=== PATIENT | male | born 1940 | race Caucasian/White ===

== ENCOUNTER 2018-07-09 11:26 | Inpatient (IN) ==
[2018-07-09] MEDS ORDERED: Vancomycin Inj 1,250 MG in Sodium Chlor 0.9% Inj 250 ML IV.SIG STA (11:28)
[2018-07-09] MEDS ORDERED: Sod Chloride 0.9% Inj 1,000 ML IV.SIG SCH ×2 (11:30→14:15)
[2018-07-09] MEDS ORDERED: Sod Chloride 0.9% Inj 100 ML IV.SIG SCH (11:30)
--- NOTE | 2018-07-09 12:18 | XR ---
EXAM DATE: 07/09/2018 11:28 AM EDT AGE/SEX: 78 years / Male INDICATIONS: Fever. CLINICAL DATA: This is the patient's initial encounter. Patient reports that signs and symptoms have been present for 1 day and indicates a pain score of Nonresponsive. MEDICAL/SURGICAL HISTORY: Non-responsive. Non-responsive. COMPARISON: No prior exams available for comparison. FINDINGS: A single AP view of the chest demonstrates diffuse opacification left lung. Right basilar airspace di sease.. The cardiomediastinal contours are unremarkable. Osseous structures are intact. CONCLUSION: 1. Almost complete opacification left lung. This may be a combination of atelectasis/infiltrate and effusion. Consider CT chest given the absence of prior imaging. 2. Right basilar airspace disease. Electronically signed by: Javan Abernathy MD 07/09/2018 12:16 PM EDT
[2018-07-09 12:19] LABS: Baso % (Auto) 0.1 % (0.0-2.0); Hematocrit 51.4 % (39.0-51.0); Lymph # (Auto) 0.9 th/mm3 (1.0-4.8); Lymph % (Auto) 3.7 % (9.0-44.0); Mean Corpuscular HGB Conc 33.1 % (32.0-36.0); Mean Corpuscular Hemoglobin 32.3 pg (27.0-34.0); Mean Corpuscular Volume 97.7 fL (80.0-100.0); Mean Platelet Volume 6.5 fL (7.0-11.0); Mono # (Auto) 1.7 th/mm3 (0.0-0.9); Mono % (Auto) 6.8 % (0.0-8.0); Neut # (Auto) 22.3 th/mm3 (1.8-7.7); Neut % (Auto) 89.4 % (16.0-70.0); Platelet Count 374 th/mm3 (150-450); Red Blood Count 5.26 mil/mm3 (4.50-5.90); White Blood Count 24.9 th/mm3 (4.0-11.0)
[2018-07-09 12:39] LABS: Alanine Aminotransferase 14 U/L (12-78); Alkaline Phosphatase 174 U/L (45-117); Total Protein 7.9 g/dL (6.4-8.2)
[2018-07-09 12:40] LABS: Albumin 3.2 g/dL (3.4-5.0); Anion Gap 8 meq/L (5-15); Aspartate Aminotransferase 56 U/L (15-37); Blood Urea Nitrogen 26 mg/dL (7-18); Calcium 9.2 mg/dL (8.5-10.1); Carbon Dioxide 33.3 meq/L (21.0-32.0); Chloride 101 meq/L (98-107); Glomerular Filtration Rate 77 mL/min (>89); Glucose,Random 194 mg/dL (74-106); Sodium 142 meq/L (136-145)
[2018-07-09 12:42] LABS: Potassium 5.5 meq/L (3.5-5.1)
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
--- NOTE | 2018-07-09 15:03 | CT ---
EXAM DATE: 07/09/2018 2:32 PM EDT AGE/SEX: 78 years / Male INDICATIONS: Shortness of breath. CLINICAL DATA: This is the patient's initial encounter. Patient reports that signs and symptoms have been present for 1 day and indicates a pain score of Nonresponsive. MEDICAL/SURGICAL HISTORY: Chronic obstructive pulmonary disease. Hypertension. Gastroesophageal r eflux disease. Diabetes. None. RADIATION DOSE: 16.08 CTDI (mGy) COMPARISON: [facility], CHEST 1V SINGLE AP, 07/09/2018. . TECHNIQUE: Multiple contiguous axial images were obtained through the chest without contrast. Image s were obtained in suspended respiration using multiple row detector helical technique. Using automa vandana exposure control and adjustment of the mA and/or kV according to patient size, radiation dose was kept as low as reasonably achievable to obtain optimal diagnostic quality images. DICOM format imag e data is available electronically for review and comparison. FINDINGS: Lung: Prominent paraseptal and diffuse centrilobular emphysema. Near-complete collapse of the left l mulu with abrupt termination of the left mainstem bronchus. There are several large bulla in the left apex. Dense airspace consolidation in the right lung base. Patchy groundglass opacities in the right upper lobe. Pleura: Large left-sided slightly loculated pleural effusion which demonstrates near simple fluid de nsity. Mediastinum: Heart is unremarkable without significant pericardial effusion. Moderate coronary arter y calcifications. Multiple slightly prominent mediastinal nodes with additional calcified nodes in th e left hilum. Osseous Structures: Status post cement augmentation at T12 and L1. No focal lytic or blastic bony les ions. Soft Tissues: Soft tissues are unremarkable. No significant axillary adenopathy. Other: Visulaized upper abdomen is essentially unremarkable. CONCLUSION: 1. Prominent paraseptal and diffuse centrilobular emphysema with near complete collapse of the left lung and abrupt termination of the left mainstem bronchus concerning for endobronchial mass/lesion. 2. Large associated left-sided slightly loculated pleural effusion with near simple fluid density. 3. Dense airspace consolidation with air bronchograms at the right lung base which may reflect pneum onia or aspiration. There are also additional regions of groundglass opacities in the right upper lob e which may also reflect developing airspace disease or volume loss. 4. Moderate coronary artery calcifications. Electronically signed by: Dallas Lindo MD 07/09/2018 3:02 PM EDT
[2018-07-09 15:17] LABS: Bacteria,Urine Occasional /hpf; Bilirubin,Urine Negative (Negative); Clarity,Urine Hazy (Clear); Color,Urine Amber (Yellw/Straw); Glucose,Urine (UA) Negative (Negative); Hyaline Casts,Urine 15 /lpf (0-3); Ictotest,Urine Negative (Negative); Leukocyte Esterase,Urine Negative (Negative); Mucus,Urine Few /lpf (Occasional); Nitrite,Urine Negative (Negative); Specific Gravity,Urine 1.031 (1.002-1.035); Squamous Epithelial Cell,Urine <1 /hpf (0-5); Urobilinogen,Urine 4 or Greater mg/dL (Less than 2)
[2018-07-09 15:29] LABS: INR 1.1 Ratio; Prothrombin Time 10.8 sec (9.8-11.6)
[2018-07-09] MEDS ORDERED: Vancomycin Consult Pharmacy OTHER PRN (16:05)
[2018-07-09] MEDS ORDERED: Dextrose 50% in Water 50 ML Vial IV.PUSH PRN (16:09)
--- NOTE | 2018-07-09 16:09 | P.CONCC ---
History of Present Illness Service: Critical care Consult date: 07/09/18 Requesting Physician: Jesus Robert Reason for Consult: Acute on chronic hypoxic respiratory failure, end-stage COPD Primary Care Provider: Robinson Barreto Chief Complaint: Altered mental status History of Present Illness: 78yM brought in from SNF for unresponsiveness. The patient is a resident of [facility] on the [facility] and was [place] to an [place] SNF in preparation for [place]. The patient's states that he has a history of Parkinson's and severe chronic COPD; for the past 3 years, he has required bipap ventilation around the clock and only takes it off to eat/ drink and shower. His says that she thinks the change in location for the past several days made the patient agitated and she is not sure if he was wearing his bipap mask as he normally does. He was brought in by EMS today when he began unresponsive. As per his MAR/ orders from [place], the patient is a DNR/ DNI. His confirms this, and says "he doesn't want any invasive or painful procedures". She says that he has had "little to no quality of life for the past few years" and she doesn't want him to be in pain. She is on her way to [place] and does not want any aggressive interventions; she would like to transition the patient to hospice when she arrives. Review of Systems unobtainable due to mental status PMFSH - History History Provided By: Significant Other, Medical Record - Medical History Medical History: Medical History (Last Reviewed 07/09/18 @ 15:57 by Shruthi Pittman DO) BPH (benign prostatic hyperplasia) COPD (chronic obstructive pulmonary disease) Dementia Diabetes CARMEN (generalized anxiety disorder) GERD (gastroesophageal reflux disease) HTN (hypertension) High cholesterol Hypothyroid MDD (major depressive disorder) Parkinson disease Sleep apnea - Social History I have reviewed the patient's Social History: Yes - Tobacco History Smoking Status: Unknown if ever smoked - Alcohol History How Often Do You Have a Drink Containing Alcohol: Unable to Obtain - Substance Use History Substance History: Unable to Obtain - Travel History Recent Travel in the [facility] Within the Last 8 Weeks: No Recent Travel Out of the Country Within the Last 8 Weeks: No - Immunization History Tetanus Immunization: Unable to Assess Medications and Allergies Active Medications: Active Medications Sodium Chloride (Ns Inj) 1,000 mls @ 0 mls/hr IV.SIG .Q0M KRISTEL Last Infusion: 07/09/18 13:47 Dose: Infused Sodium Chloride (Ns Inj) 100 mls @ 0 mls/hr IV.SIG .Q0M KRISTEL Last Infusion: 07/09/18 12:41 Dose: Infused Sodium Chloride (Ns Inj) 1,000 mls @ 0 mls/hr IV.SIG BOLUS KRISTEL Stop: 07/10/18 14:16 Last Infusion: 07/09/18 15:35 Dose: Infused Allergies Allergy/AdvReac Type Severity Reaction Status Date / Time No Known Allergies Allergy Unverified 07/09/18 11:28 Home Medications Medication Instructions Recorded Confirmed Type aspirin 81 mg PO DAILY 07/09/18 07/09/18 History budesonide 2 ml INHALATION BID 07/09/18 07/09/18 History calcitonin (salmon) 1 spray INTRANASAL (ALT) DAILY 07/09/18 07/09/18 History calcium carbonate-vitamin D3 1 tab PO DAILY 07/09/18 07/09/18 History [Calcium 600 + D(3)] carbidopa-levodopa 1 tab PO TID 07/09/18 07/09/18 History cholecalciferol (vitamin D3) 5,000 unit PO DAILY 07/09/18 07/09/18 History [Vitamin D3] citalopram 20 mg PO DAILY 07/09/18 07/09/18 History digoxin 0.125 mg PO DAILY 07/09/18 07/09/18 History diltiazem HCl 300 mg PO DAILY 07/09/18 07/09/18 History gabapentin 300 mg PO TID 07/09/18 07/09/18 History glipizide 20 mg PO DAILY 07/09/18 07/09/18 History hydrocodone-acetaminophen [Satsuma] 1 tab PO Q4-6H PRN 07/09/18 07/09/18 History levothyroxine 100 mcg PO DAILY 07/09/18 07/09/18 History metformin 500 mg PO BID 07/09/18 07/09/18 History omeprazole 20 mg PO DAILY 07/09/18 07/09/18 History polyethylene glycol 3350 [Miralax] 17 g PO DAILY 07/09/18 07/09/18 History pravastatin 40 mg PO DAILY 07/09/18 07/09/18 History primidone [Mysoline] 125 mg PO TID 07/09/18 07/09/18 History propranolol [Inderal XL] 80 mg PO BID 07/09/18 07/09/18 History tamsulosin 0.4 mg PO DAILY 07/09/18 07/09/18 History Physical Exam Vital signs: Vital Signs 07/09/18 11:33 07/09/18 12:16 07/09/18 14:00 Temperature 100.1 F H Pulse Rate 119 H 114 H Respiratory Rate 18 19 Blood Pressure 122/74 113/64 Pulse Oximetry 90 L 94 L Intake & Output 07/08/18 07/09/18 07/09/18 18:59 06:59 18:59 Intake Total 2462.5 / 2462.5 Balance 2462.5 / 2462.5 Weight 81.647 kg Intake: IV 2462.5 / 2462.5 Maxipime Inj 2,000 MG In NS Inj 100 / 100 100 ML @ 200 mls/hr IV.SIG STAT STA Rx#:[id number] NS Inj 1,000 ML @ Wide Open IV. 2100 / 2100 SIG BOLUS KRISTEL Rx#:[id number] Vancomycin Inj 1,250 MG In NS 262.5 / 262.5 Inj 250 ML @ 250 mls/hr IV.SIG STAT STA Rx#:[id number] Narrative: GEN: Frail, cachectic elderly male lying in bed, somnolent HEENT: NCAT, mucosa dry NECK: Trachea midline CARDIO: Tachy, regular RESP: Significantly diminished breath sounds bilaterally, absent at left base, increased work of breathing ABD/GI: Non-distended, no guarding EXT/MSK: Trace peripheral edema SKIN: Cool and dry NEURO: GCS 8 ([id number]), somnolent PSYCH: Unable to assess Assessment and Plan - Assessment and Plan Plan: 78yM presenting with encephalopathy secondary to acute on chronic hypoxic respiratory failure, end-stage COPD, left lung collapse and suspected left mainstem endobronchial mass, large left-sided pleural effusion, and bilateral lung consolidations. Plan: I had a long conversation with the patient's , who is on her way from the [facility] and says that she will be at [place] around 5 PM tonight. She confirms that the patient is a DNR/ DNI and says that she does not wish for him to have any invasive, aggressive, or painful procedures performed, including thoracentesis/ chest tube/ bronchoscopy. She would like to transition the patient to hospice when she arrives and is hopeful that the patient can be transferred to a hospice facility closer to their home as soon as possible. I informed her that this likely will not be accomplished this evening, which she understands and agrees with. The hospice team was consulted by Dr. Robert in the ED. I also spoke with Dr. Horton of interventional radiology both before and after my discussion with the patient's . The patient is certainly critically ill, but given his DNR/ DNI status and plan to transition to hospice when his arrives, I do not feel that it is appropriate or in keeping with his wishes to admit him to the intensive care unit. I discussed the case with Dr. Philippe of [facility], who has seen the patient and will place orders. I have ordered CPAP for the patient while he waits for his to arrive. Counseling/ Coordination of Care: Total critical care time spent is 31 minutes. This includes examining the patient, gathering history from someone other than the patient (i.e. chart review), discussing the patient's care with other providers, managing the patient's non-invasive ventilation settings, reviewing radiologic studies, reviewing laboratory values, and documentation. Amount of time is separate from teaching, counseling the patient and/or family, and exclusive of procedures. Code Status: DNR/ DNI, transition to comfort measures only when arrives Discussed Condition With: Patient's , Dr. Horton (IR), Dr. Philippe ([facility]), Dr. Robert (ED)
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
[2018-07-09] MEDS: Sod Chloride 0.9% Inj 1,000 ML IV.CONT SCH (19:22)
[2018-07-09] MEDS: Insulin NovoLOG Aspart Correctional Sugar Inj SQ SCH ×2 (19:25→22:33)
[2018-07-09] MEDS ORDERED: Morphine Sulfate Inj 2 MG/ML Vial IV.PUSH PRN (21:23)
[2018-07-10 05:31] LABS: Calcium 8.4 mg/dL (8.5-10.1); Carbon Dioxide 25.4 meq/L (21.0-32.0); Potassium 5.3 meq/L (3.5-5.1)
[2018-07-10 05:41] LABS: Baso % (Auto) 0.1 % (0.0-2.0); Hemoglobin 16.8 gm/dL (13.0-17.0); Lymph # (Auto) 0.9 th/mm3 (1.0-4.8); Mean Corpuscular HGB Conc 34.3 % (32.0-36.0); Mean Corpuscular Hemoglobin 33.2 pg (27.0-34.0); Mean Corpuscular Volume 96.9 fL (80.0-100.0); Mean Platelet Volume 7.2 fL (7.0-11.0); Mono # (Auto) 1.3 th/mm3 (0.0-0.9); Mono % (Auto) 5.5 % (0.0-8.0); Neut # (Auto) 20.7 th/mm3 (1.8-7.7); Neut % (Auto) 90.4 % (16.0-70.0); Platelet Count 320 th/mm3 (150-450); Red Blood Count 5.06 mil/mm3 (4.50-5.90); Red Cell Distribution Width 14.4 % (11.6-17.2); White Blood Count 22.9 th/mm3 (4.0-11.0)
[2018-07-10] MEDS: Sod Chloride 0.9% Inj 1,000 ML IV.CONT SCH ×2 (05:48→17:16)
[2018-07-10] MEDS: Insulin NovoLOG Aspart Correctional Sugar Inj SQ SCH ×2 (07:48→11:15)
[2018-07-10] MEDS ORDERED: Vancomycin Inj 1,750 MG in Sodium Chlor 0.9% Inj 500 ML IV.SIG SCH (08:00)
[2018-07-10 15:48] VITALS: O2SAT 89
--- NOTE | 2018-07-10 15:55 | P.PN ---
Subjective Interval history: Nursing denies any deterioration since last night. Patient on BiPAP at this time. Family at the bedside currently speaking with the hospice front desk representative. Physical Exam Vital signs: Vital Signs 07/09/18 16:00 07/09/18 17:37 07/09/18 20:00 Temperature 98.2 F Pulse Rate 112 H Respiratory Rate 22 14 16 Blood Pressure 125/73 61/44 L Pulse Oximetry 92 L 07/10/18 00:00 07/10/18 08:00 07/10/18 15:43 Temperature 97.2 F L 97.8 F Pulse Rate 121 H 84 Respiratory Rate 16 16 Blood Pressure 69/48 L 71/50 L Pulse Oximetry 89 L Intake & Output 07/09/18 07/10/18 07/10/18 18:59 06:59 18:59 Intake Total 2462.5 / 2462.5 100 / 100 1617.5 / 1617.5 Output Total 200 / 200 Balance 2462.5 / 2462.5 -100 / -100 1617.5 / 1617.5 Weight 81.647 kg 83.4 kg Intake: IV 2462.5 / 2462.5 100 / 100 1617.5 / 1617.5 NS Inj 1,000 ML @ 84 mls/hr IV. 1000 / 1000 CONT .[id number] KRISTEL Rx#:[id number] Maxipime Inj 2,000 MG In NS Inj 100 / 100 100 / 100 100 / 100 100 ML @ 200 mls/hr IV.SIG Q12H KRISTEL Rx#:[id number] NS Inj 1,000 ML @ Wide Open IV. 2100 / 2100 SIG BOLUS KRISTEL Rx#:[id number] Vancomycin Inj 1,250 MG In NS 262.5 / 262.5 Inj 250 ML @ 250 mls/hr IV.SIG STAT STA Rx#:[id number] Oral 0 / 0 Output: Urine 200 / 200 Narrative: Coarse breath sounds on BiPAP Lying in bed, appears pale, no acute distress, somnolent Results - Labs CBC & Chem 7: 07/10/18 04:10 07/10/18 04:10 Laboratory Results - last 24 hr 07/09/18 07/09/18 07/09/18 19:24 20:01 20:02 WBC RBC Hgb Hct MCV MCH MCHC RDW Plt Count MPV Neut % (Auto) Lymph % (Auto) [place] % (Auto) Eos % (Auto) Baso % (Auto) Neut # (Auto) Lymph # (Auto) [place] # (Auto) Eos # (Auto) Baso # (Auto) WBC Differential Differential Comment Sodium Potassium Chloride Carbon Dioxide Anion Gap BUN Creatinine Estimated GFR POC Glucose 130 H 36 L* 131 H Random Glucose Calcium 07/10/18 07/10/18 07/10/18 04:10 04:10 07:48 WBC 22.9 H RBC 5.06 Hgb 16.8 Hct 49.0 MCV 96.9 MCH 33.2 MCHC 34.3 RDW 14.4 Plt Count 320 MPV 7.2 Neut % (Auto) 90.4 H Lymph % (Auto) 4.0 L [place] % (Auto) 5.5 Eos % (Auto) 0.0 Baso % (Auto) 0.1 Neut # (Auto) 20.7 H Lymph # (Auto) 0.9 L [place] # (Auto) 1.3 H Eos # (Auto) 0.0 Baso # (Auto) 0.0 WBC Differential . Differential Comment Auto diff final Sodium 149 H Potassium 5.3 H Chloride 109 H D Carbon Dioxide 25.4 Anion Gap 15 BUN 32 H Creatinine 1.67 H Estimated GFR 40 L POC Glucose 117 H Random Glucose 120 H Calcium 8.4 L D 07/10/18 11:13 WBC RBC Hgb Hct MCV MCH MCHC RDW Plt Count MPV Neut % (Auto) Lymph % (Auto) [place] % (Auto) Eos % (Auto) Baso % (Auto) Neut # (Auto) Lymph # (Auto) [place] # (Auto) Eos # (Auto) Baso # (Auto) WBC Differential Differential Comment Sodium Potassium Chloride Carbon Dioxide Anion Gap BUN Creatinine Estimated GFR POC Glucose 128 H Random Glucose Calcium Microbiology 07/09/18 14:37 Catheterized Urine Urine Culture - Preliminary No growth in 24 hours 07/09/18 11:52 Blood - Peripheral Aerobic Blood Culture - Preliminary No growth in 1 day 07/09/18 11:52 Blood - Peripheral Anaerobic Blood Culture - Preliminary No growth in 1 day 07/09/18 11:52 Blood - Peripheral Aerobic Blood Culture - Preliminary No growth in 1 day 07/09/18 11:52 Blood - Peripheral Anaerobic Blood Culture - Preliminary No growth in 1 day Assessment and Plan - Plan 78-year-old white male admitted for sepsis secondary to pneumonia with acute respiratory failure. -sepsis due to pneumonia - acute respiratory failure chest CT with near-complete collapse of the left lung with possible endobronchial mass,left pleural effusion and right base pneumonia. Comfort care measures in effect at this time, DNR status in effect, family pursuing hospice On BiPAP and IV antibiotics until discharged to hospice -diabetes mellitus; accu-check with SSI -history of a-fib; will hold oral home meds for now due to altered mentation -parkinson's disease; hold home meds for now -DVT prophylaxis with SCD's Addendum: Patient around 5:30 PM peacefully on the floor. and daughter present at the bedside, had questions about patient's deterioration before he came to the hospital. I informed them that I could only speak to what I knew which was he came in with significant difficulty breathing. and daughter are very relieved that he peacefully. They expressed gratitude for our service. from sepsis 2/2 pneumonia.
[2018-07-10 16:52] VITALS: BP 77/47; PULSE 135; RESP 12; TEMP 98.4
--- NOTE | 2018-07-10 21:00 | ECG ---
Date Performed: 07/09/2018 Time Performed: 12:54:31 PTAGE: 78 years EKG: ATRIAL FLUTTER/TACHYCARDIA WITH RAPID VENTRICULAR RESPONSE MARKED LEFT AXIS DEVIATION RIGHT BUNDLE BRANCH BLOCK ABNORMAL ECG NO PREVIOUS TRACING DOCTOR: Bryn De Interpretating Date/Time 07/10/2018 20:59:04
[2018-07-12] MEDS ORDERED: Pharmacy Ordered Lab Info OTHER ONE (07:45)
--- NOTE | 2018-07-28 13:28 | P.DN ---
Pronouncement Note - Date and Time of Date of : 07/10/18 Time of : 17:30 - PCOD Preliminary cause of : sepsis secondary to pneumonia - Summary Additional details: Pt was awaiting hospice arrangements and peacefully @ 1730 w/o pulse, motionless, no respirations. Family was present at the bedside.
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
== END 2018-07-10 19:30 | disposition expired ==
LOC: NEPE 11:26 → NEDA 15:16 → N07 17:33
PROVIDERS: ADMIT Hospitalist; ATTEND Hospitalist